=== PATIENT | female | born 1985 ===

== ENCOUNTER 2024-10-06 13:15 | Outpatient (CLI) | payer BC, SELFPAY | END 2024-10-06 13:16 | disposition home or self-care (01) | LOC: FRMREF 13:18 | PROVIDERS: Visit Provider Nurse Practitioner Family | DX: I10 Essential (primary) hypertension (principal); N39.0 Urinary tract infection, site not specified; B96.20 Unspecified Escherichia coli [E. coli] as the cause of diseases classified elsewhere; Z13.220 Encounter for screening for lipoid disorders | CPT/HCPCS: 80053; 80061; 87086; 87186 ==